=== PATIENT | female | born 1990 | race Caucasian/White ===

== ENCOUNTER 2018-09-08 10:16 | Emergency (ER) | payer MEDICAID ==
[~2018-09-08] VITALS: Ht 165.1 cm; Wt 61.5 kg
[~2018-09-08 10:16] MED LIST: IBUP-1986 PO
--- NOTE | 2018-09-08 10:48 | NUR ---
AMBULATORY TO ER #1 WITH C/O DIFFICULTY HEARING OUT OF LEFT EAR X 3 DAYS. STATES SHE FEELS LIKE HER EAR IS PLUGGED AND USED EAR WAX DROPS WITH LITTLE RESULTS. HEARING IS NOT ALTERED IN RIGHT EAR. NO PAIN, JUST FEELING FULL.
[2018-09-08 12:08] VITALS: BP 115/45
== END 2018-09-08 12:06 | disposition home or self-care (01) ==
LOC: ER 10:16
DX: H61.22 Impacted cerumen, left ear (principal); Z79.899 Other long term (current) drug therapy
CPT/HCPCS: 69209; 99282